=== PATIENT | female | born 1970 | race Caucasian/White ===

== ENCOUNTER 2022-06-08 14:45 | Outpatient (RCR) | payer OTHER, SELFPAY ==
--- NOTE | 2022-05-04 17:24 | PT.OPE ---
[facility] Start: 05/04/22 15:55 Freq: Status: Active Protocol: Document 05/04/22 17:20 CJT (Rec: 05/04/22 17:23 CJT [id number]) E-signed By Ronald Garay PT Physical Therapy Outpatient Evaluation Insurance Information Recert Due Date 06/08/22 Insurance Name [employer] Insurance Information/Comments Approved for 9 visits Medical Diagnosis S83.90XA - sprain of unspecified ligament of unspecified knee Treating Diagnosis M25.562 - L knee pain Referring Cookie Mauro MD Subjective Subjective Pt had injury to L knee in early January 2022. Was pushing a heavy cart full of books, was going down a ramp and tried to spin the cart and notes her knee twisted and felt a very dull pain that made her feel nauseous. Did not feel or hear a pop in the knee. Has not tried using a knee brace. Has been avoiding squatting motions due to fear of the pain. Stairs are very painful. Walking 18 holes while playing golf is also very painful and she reduces this with Tylenol. Pt enjoys playing pickle ball as well. Would like to take long walks but is unable to do so due to pain. Sitting for long periods is also painful. Pt does occasionally have pain at night due to pain in the knee. Pt is leaving 05/22/22 - for vacation. 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 [facility] Precautions Therapy Limitations/Systems Review Not Limited Objective Range of Motion B hip ROM: WNL R knee ROM - 5-0-130 L knee ROM - 5-0-130 Strength R Hip Strength Flexion - 4/5 MMT Abduction - 4+/5 MMT Adduction - 5/5 MMT IR - 5/5 MMT ER - 4+/5 MMT Extension - 4/5 MMT L Hip Strength Flexion - 4/5 MMT Abduction - 4+/5 MMT Adduction - 5/5 MMT IR - 5/5 MMT ER - 4+/5 MMT Extension - 4/5 MMT R knee Extension - 5/5 MMT R Knee Flexion - 5/5 MMT L knee Extension - 5/5 MMT L knee Flexion - 5/5 MMT R ankle DF - 5/5 MMT L ankle DF - 5/5 MMT Other/Pertinent Objective Valgus Stress test: negative Varus Stress test: positive for pain at medial patellar border Gudelia's: negative Thessaly's: DNT Anterior Drawer: negative Posterior Drawer: negative LLD: 1.0 CM with L > R - need to retest Assessment Assessment/Impression Pt is a 51 year old female who presents to [facility] PT clinic with complaints of L knee pain ongoing since early January. Pain is located at medial patellar boarder of L knee. This is a Workman's comp claim. Pt reports she was pushing a cart of books down the [place] and was going down a ramp and tried to slow and turn the cart when she had immediate pain in her L knee and a sensation of nausea. Pts knee pain has been relatively unchanged since the injury and has not improved with steroid injection. 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 Testing today reveals deficits in pts LE strength primarily at the hip (see objective). Varus stress test of the L knee is positive for pain at medial patella but all other special testing is negative at this time. Skilled PT services are medically necessary to address deficits and return patient to highest level of function. Recommend physical therapy sessions 2/week for 4-6 weeks. Pt agrees with this plan. Printout of HEP was given for I completion and pt gives verbal understanding of each exercise. Pt has been approved for 9 visits thru 06/08/22 so we will try to schedule [facility] for these sessions during that time frame. Primary Functional Limitations Stairs, walking, standing, Plan of Care Rehabilitation Potential Good Physical Therapy Goals STG - To be completed in 2-3 weeks: 1. Pt will report reduction in pain by factor of 2 on average so that she may perform all job duties and ADLs with manageable pain. 2. Pt will demonstrate ability to perform partial squat with no increase in knee pain so that she may return to light exercise. 3. Pt will report ability to walk 2 miles with no change in her knee pain so that she may continue to walk for exercise /pleasure. LTG - To be completed in 4 weeks: 1. Pt to be I with HEP so that she may I manage progression of symptoms. 2. Pt will demonstrate ability to ascend/descend 2 x 10 stairs without knee pain so that she may walk stairs in her house pain free. 3. Pt will report ability to sleep throughout the night without waking due to pain so that she may wake well rested wth reduced mental fatigue during working hours. 4. Pt will report ability to attend exercise classes at her gym and participate without increase in her knee pain so that she may continue to exercise for her health and pleasure. Treatment Plan/Direct Interventions Electrical Stimulation,Gait Training,Ice/Cold/ Vasopneumatic,Joint Mobilization,Manual Therapy, Neuromuscular Re-ed,Self-Care/ Home Management,Therapeutic Exercises,Ultrasound Frequency/Duration 2/week for 4 weeks, 9 visits total approved Patient Will Be Discharged From Therapy Completion of LTG(s),Skills Plateau,Independent w/HEP, Independently Progressing Evaluation Billing Untimed Code Treatment Minutes 45 PT Eval No Charge No Complexity Low Certification Information Initial Certification Date 05/04/22 Ending Certification Date 06/08/22 Provider Signature Shows Agreement With POC & Medical Necessity Physician Comment/Change Comment or Changes Physician NPI Number #
== END 2023-02-25 23:59 | disposition home or self-care (01) ==
PROVIDERS: PCP Family Medicine; Visit Provider Physician Assistant
DX: S83.90XA Sprain of unspecified site of unspecified knee, initial encounter (principal); M22.42 Chondromalacia patellae, left knee; M25.562 Pain in left knee; G89.29 Other chronic pain; Z51.89 Encounter for other specified aftercare
CPT/HCPCS: 97035; 97110; 97140; 97161